=== PATIENT | female | born 1960 | race Caucasian/White ===

== ENCOUNTER → 2020-02-23 11:03 | Outpatient (CLI) | payer OTHER, SELFPAY ==
--- NOTE | ~2020-02-23 | DEXA_ITS ---
Bone Density Report Name: Joanna Morocho Age: 60 Sex: Female Ethnicity: White Date of : 1960 Indication: osteopenia; monitoring treatment; height loss; postmenopausal Referring Provider: TOM COOL Study: Bone densitometry was performed. Exam Date: February 23, 2020 Accession number: [id number] Bone Density: Region BMD T-score Z-score Classification AP Spine (L1-L4) 0.817 -2.1 -0.7 Osteopenia Femoral Neck (Left) 0.706 -1.3 -0.1 Osteopenia Total Hip (Left) 0.877 -0.5 0.4 Normal Femoral Neck (Right) 0.741 -1.0 0.3 Normal Total Hip (Right) 0.861 -0.7 0.2 Normal Total Hip Mean 0.869 -0.6 0.3 Normal World Health Organization criteria for BMD impression classify patients as: Normal (T-score at or above -1.0), Osteopenia (T-score between -1.0 and -2.5), or Osteoporosis (T-score at or below -2.5). 10-year Fracture Risk: FRAX not reported because: Treated for osteoporosis Previous Exams: Region Exam Age BMD T-score BMD Change BMD Change Date g/cm2 vs Baseline vs Previous AP Spine(L1-L4) 02/23/2020 60 0.817 -2.1 -0.050* -0.047* 10/07/2016 56 0.864 -1.7 -0.002 -0.002 02/01/2013 53 0.866 -1.6 Total Hip(Left) 02/23/2020 60 0.877 -0.5 -0.031* 0.004 10/07/2016 56 0.874 -0.6 -0.034* -0.034* 02/01/2013 53 0.908 -0.3 Total Hip(Right) 02/23/2020 60 0.861 -0.7 -0.036* -0.033* 10/07/2016 56 0.894 -0.4 -0.004 -0.004 02/01/2013 53 0.898 -0.4 *Denotes significance at 95% confidence level, LSC for AP Spine = 0.022 g/cm2, LSC for Total Hip = 0.027 g/cm2 Clinical Information Provided by Patient: Is being treated for osteoporosis Has used the following medications: HRT (i.e. estrogen/hormone therapy), Vitamin D, Calcium Patient maximum height was 62 Menopause Age: 49 Does not regularly consume dairy products Drinks caffeinated beverages Onset of menses at age 15 Number of children 2 Impression: The patient has low bone mass, based on the Total Spine T-score. The BMD for the AP Spine(L1-L4) decreased, changing by -0.047 since the last DXA exam. The BMD for the Total Hip(Right) decreased, changing by -0.033 since the last DXA exam. Discussion: SIGNIFICANT BONE LOSS OBSERVED. Adherence to therapy (including calcium and vitamin D intake) should be assessed. If compliance is not a factor, review management and exclusion of seconda
== END ==
PROVIDERS: Visit Provider Obstetrics & Gynecology
DX: Z13.820 Encounter for screening for osteoporosis (principal); M85.88 Other specified disorders of bone density and structure, other site; M85.852 Other specified disorders of bone density and structure, left thigh
CPT/HCPCS: 77080

== ENCOUNTER → 2021-07-23 02:07 | Outpatient (CLI) | payer OTHER, SELFPAY ==
[2021-07-23 19:53] LABS: SARS-CoV-2 RNA PCR Negative
== END ==
PROVIDERS: Visit Provider Internal Medicine Gastroenterology
DX: Z01.812 Encounter for preprocedural laboratory examination (principal); Z20.822 Contact with and (suspected) exposure to COVID-19
CPT/HCPCS: C9803; U0003; U0005

== ENCOUNTER 2021-07-26 00:11 | Day surgery (SDC) | payer OTHER, SELFPAY ==
[2021-07-12 14:40] VITALS: BMI 21.7
--- NOTE | 2021-07-25 14:05 | WPDANESEPPF ---
Anes - Initial Pre Proc Eval Procedure: Operation Date: 07/26/21 08:30 Proposed Procedures p Screening Colonoscopy - Mg Salazar MD <Barak Acuna DO - Last Filed: 07/26/21 09:37> Date/Time: 07/25/21 14:05 <Barak Acuna DO - Last Filed: 07/26/21 09:37> Surgeon: Mg Salazar MD <Barak Acuna DO - Last Filed: 07/26/21 09:37> Pre Op Diagnosis: hx of colon polyps <Barak Acuna DO - Last Filed: 07/26/21 09:37> Patient Data Age: 61 Gender: F Height: 1.55 m Weight: 52 kg <Barak Acuna DO - Last Filed: 07/26/21 09:37> Allergies Allergy/AdvReac Type Severity Reaction Status Date / Time meperidine AdvReac Severe SEVERE Verified 07/26/21 07:42 PROLONGED N/V FOR DAYS <Barak Acuna DO - Last Filed: 07/26/21 09:37> Home Medications Medication Instructions Recorded Confirmed Type No Home Medications 07/12/21 07/26/21 History <aBrak Acuna DO - Last Filed: 07/26/21 09:37> Patient hx anesthesia problems: none <Beena Leyva CRNA - Last Filed: 07/26/21 08:38> Family hx anesthesia problems: none <Beena Leyva CRNA - Last Filed: 07/26/21 08:38> Results Review: All pre-operative results and documents have been reviewed as part of the pre-operative evaluation. <Barak Acuna DO - Last Filed: 07/26/21 09:37> PMFSH Past Medical History Medical History: Medical History (Updated 07/26/21 @ 08:30 by Mg Salazar MD) Colon polyp Hyperlipidemia <Barak Acuna DO - Last Filed: 07/26/21 09:37> Social History Social History: Social History Smoking status: Never smoker Alcohol intake: current Alcohol use details: On social occasions Living arrangements: alone Spiritual care concerns: No <Barak Acuna DO - Last Filed: 07/26/21 09:37> Anes - Eval Final PreProcedure Day of Procedure 07/25/21 14:05 <Barak Acuna DO - Last Filed: 07/26/21 09:37> Patient weight: normal <Barak Acuna DO - Last Filed: 07/26/21 09:37> Heart: regular rate and rhythm <Barak Acuna DO - Last Filed: 07/26/21 09:37> Lungs: clear to auscultation and normal air movement <Barak Acuna DO - Last Filed: 07/26/21 09:37> Airway: Mallampati scale class II <Barak Acuna DO - Last Filed: 07/26/21 09:37> Neurological: alert and oriented <Barak Acuna DO - Last Filed: 07/26/21 09:37> Last oral intake: >/= 8 hours <Barak Acuna DO - Last Filed: 07/26/21 09:37> ASA classification: II <Barak Acuna DO - Last Filed: 07/26/21 09:37> Emergent: no <Barak Acuna DO - Last Filed: 07/26/21 09:37> Anesthetic plan: proceed <Barak Acuna DO - Last Filed: 07/26/21 09:37> Anesthesia type and monitoring: general GIVS and standard monitoring <Barak Acuna DO - Last Filed: 07/26/21 09:37> Results Review: All pre-operative results and documents have been reviewed as part of the pre-operative evaluation. <Barak Acuna DO - Last Filed: 07/26/21 09:37> Informed Consent: The patient's anesthetic plan and its attendant risks and benefits were discussed with the patient/family/POA. Questions were solicited and answers provided to the satisfaction of the patient/family/POA. <Braak Acuna DO - Filed: 07/26/21 09:37>
[2021-07-26 07:43] VITALS: BP 136/76; PULSE 79; RESP 20; TEMP 36.8; O2SAT 100; BMI 21.3
[2021-07-26] MEDS: LACTATED RINGERS 1,000 ML 150 ML IV CONT (07:47)
--- NOTE | 2021-07-26 08:30 | PM.HPGS ---
History of Present Illness History of Present Illness Consent: Risks, benefits, and alternatives have been discussed and questions answered. Patient agrees to proceed with procedure. Chief complaint: hx of colon polyps Narrative: Joanna Morocho is a 61 year old female with last colonoscopy in 2012, she had polyps Review of Systems Constitutional: Constitutional: Denies headache(s) and Denies weakness Eyes: Eyes: Denies blurry vision ENT: Reports Normal hearing present, Denies headache(s) and Denies neck pain Cardiovascular: Cardiovascular: Denies chest pain and Denies dyspnea Respiratory: Respiratory: Denies dyspnea Gastrointestinal: Gastrointestinal: Reports no additional gastrointestinal complaints Genitourinary: Genitourinary: Denies dysuria Musculoskeletal: Musculoskeletal: Denies neck pain Integumentary/Breasts: Skin/Breast: Denies dry skin Neurologic: Reports Normal hearing present, Denies headache(s) and Denies weakness Psychiatric: Psychiatric: Denies anxiety Endocrine: Endocrine: Denies change in body appearance Hematologic/Lymphatic: Hematologic/Lymphatic: Denies easy bleeding Allergic/Immunologic: Allergic/Immunologic: Denies urticaria PMFSH Past Medical History Medical History (Updated 07/26/21 @ 08:30 by Mg Salazar MD) Colon polyp Hyperlipidemia Social History Social History Smoking status: Never smoker Alcohol intake: current Alcohol use details: On social occasions Living arrangements: alone Spiritual care concerns: No Meds Home Medications and Allergies Home Medications Medication Instructions Recorded Confirmed Type No Home Medications 07/12/21 07/26/21 History Allergies Allergy/AdvReac Type Severity Reaction Status Date / Time meperidine AdvReac Severe SEVERE Verified 07/26/21 07:42 PROLONGED N/V FOR DAYS Vital Signs Vital Signs - 24 hr 07/26/21 07:43 Temperature 98.2 F Pulse Rate 79 Respiratory Rate 20 Blood Pressure 136/76 Pulse Oximetry 100 Exam Const: General: comfortable and no acute distress HENMT: General nose exam: Normal nares present Eyes: General: appearance normal, both eyes and all related structures Neck: Neck: no JVD Resp: Auscultation: clear to auscultation bilaterally Cardio: Rate: regular rate Rhythm: regular rhythm GI: Inspection: non-distended GI Palp: Yes Soft to palpation Skin: General skin exam: normal color Neuro: General: gait normal Speech: normal speech Extrem: General: normal to inspection Psych: Mental Status: mental status grossly normal Assessment and Plan Assessment and plan (1) Colon polyp: Code(s): K63.5 - Polyp of colon Status: Acute Assessment and Plan: she is due to have another colonoscopy
[2021-07-26 08:56] VITALS: BP 104/59; PULSE 74; RESP 12; O2SAT 98
--- NOTE | 2021-07-26 08:57 | SUR.OPER ---
RN updated family
[2021-07-26 09:06] VITALS: BP 98/59; PULSE 65; RESP 15; O2SAT 99
[2021-07-26 09:16] VITALS: BP 120/81; PULSE 72; RESP 23; O2SAT 100
== END 2021-07-26 09:20 | disposition home or self-care (01) ==
PROVIDERS: Visit Provider Internal Medicine Gastroenterology
PROC: 0DJD8ZZ Inspection of Lower Intestinal Tract, Via Natural or Artificial Opening Endoscopic (ICD-10-PCS; CPT 45378; principal; 2021-07-26 08:30)
DX: Z12.11 Encounter for screening for malignant neoplasm of colon (principal); D12.5 Benign neoplasm of sigmoid colon; K62.1 Rectal polyp; K57.30 Diverticulosis of large intestine without perforation or abscess without bleeding; K63.5 Polyp of colon; K64.8 Other hemorrhoids; E78.5 Hyperlipidemia, unspecified
CPT/HCPCS: 45380; 45385; 88305; C9803; J2704; J7120; U0003; U0005

== ENCOUNTER → 2022-11-27 12:23 | Outpatient (CLI) | payer OTHER, SELFPAY ==
--- NOTE | ~2022-11-27 | DEXA_ITS ---
Bone Density Report Name: OSCAR DOUGLAS Age: 62 Sex: Female Ethnicity: White Date of : 1960 Indication: osteopenia; postmenopausal Referring Provider: REBECCA, ORBSON Study: Bone densitometry was performed. Exam Date: November 27, 2022 Accession number: [id number] Bone Density: Region BMD T-score Z-score Classification AP Spine (L1-L4) 0.708 -3.1 -1.5 Osteoporosis Femoral Neck (Left) 0.657 -1.7 -0.4 Osteopenia Total Hip (Left) 0.749 -1.6 -0.5 Osteopenia Femoral Neck (Right) 0.680 -1.5 -0.2 Osteopenia Total Hip (Right) 0.769 -1.4 -0.4 Osteopenia Total Hip Mean 0.759 -1.5 -0.5 Osteopenia World Health Organization criteria for BMD impression classify patients as: Normal (T-score at or above -1.0), Osteopenia (T-score between -1.0 and -2.5), or Osteoporosis (T-score at or below -2.5). 10-year Fracture Risk: FRAX not reported because: Some T-score for Spine Total or Hip Total or Femoral Neck at or below -2.5 Previous Exams: Region Exam Age BMD T-score BMD Change BMD Change Date g/cm2 vs Baseline vs Previous AP Spine(L1-L4) 11/27/2022 62 0.708 -3.1 -0.158* -0.108* 02/23/2020 60 0.817 -2.1 -0.050* -0.047* 10/07/2016 56 0.864 -1.7 -0.002 -0.002 02/01/2013 53 0.866 -1.6 Total Hip(Left) 11/27/2022 62 0.749 -1.6 -0.159* -0.128* 02/23/2020 60 0.877 -0.5 -0.031* 0.004 10/07/2016 56 0.874 -0.6 -0.034* -0.034* 02/01/2013 53 0.908 -0.3 Total Hip(Right) 11/27/2022 62 0.769 -1.4 -0.129* -0.092* 02/23/2020 60 0.861 -0.7 -0.036* -0.033* 10/07/2016 56 0.894 -0.4 -0.004 -0.004 02/01/2013 53 0.898 -0.4 *Denotes significance at 95% confidence level, LSC for AP Spine = 0.022 g/cm2, LSC for Total Hip = 0.027 g/cm2 Clinical Information Provided by Patient: Has used the following medications: Vitamin D Patient maximum height was 61 Menopause Age: 49 Does not regularly consume dairy products Drinks caffeinated beverages Onset of menses at age 15 Number of children 2 Impression: The patient has osteoporosis, based on the Total Spine T-score. The BMD for the AP Spine(L1-L4) decreased, changing by -0.108 since the last DXA exam. The BMD for the Total Hip(Left) decreased, changing by -0.128 since the last DXA exam. The BMD for the Total Hip(Right) decreased, changing
== END ==
PROVIDERS: PCP Family Medicine; Visit Provider Nurse Practitioner
DX: M81.0 Age-related osteoporosis without current pathological fracture (principal); M85.89 Other specified disorders of bone density and structure, multiple sites
CPT/HCPCS: 77080